=== PATIENT | female | born 1980 | race Caucasian/White ===

== ENCOUNTER 2019-05-10 22:37 | Emergency (ER) | payer OTHER ==
[~2019-05-10] VITALS: Ht 167.6 cm; Wt 87.1 kg
[2019-05-10 22:57] VITALS: Ht 167.6 cm; Wt 87.1 kg
[2019-05-11 02:19] VITALS: BP 142/88
== END 2019-05-11 02:20 | disposition home or self-care (01) ==
LOC: ED 22:37
DX: R51 Headache (principal); R11.2 Nausea with vomiting, unspecified; H53.149 Visual discomfort, unspecified
CPT/HCPCS: J0780; J1885